=== PATIENT | female | born 1985 | race Caucasian/White ===

== ENCOUNTER → 2016-07-07 | Outpatient (CLI) | payer BC ==
[~2016-07-07] MED LIST: METH0.2T39 PO; PRENTAB26 PO
== END | disposition home or self-care (01) ==
LOC: C.PAPS 10:09
PROVIDERS: ATTEND Obstetrics & Gynecology
DX: Z01.419 Encounter for gynecological examination (general) (routine) without abnormal findings (principal); Z98.891 History of uterine scar from previous surgery

== ENCOUNTER → 2016-11-01 | Outpatient (CLI) | payer BC | END | disposition home or self-care (01) | LOC: C.LAB 09:17 | PROVIDERS: ATTEND Obstetrics & Gynecology | DX: Z32.01 Encounter for pregnancy test, result positive (principal) ==

== ENCOUNTER → 2016-11-03 | Outpatient (CLI) | payer BC | END | disposition home or self-care (01) | LOC: C.LAB 11:21 | PROVIDERS: ATTEND Obstetrics & Gynecology | DX: O20.0 Threatened abortion (principal) ==

== ENCOUNTER → 2016-11-14 | Outpatient (CLI) | payer BC ==
[2016-11-14 15:45] LABS: URINE APPEARANCE CLEAR (CLEAR); URINE BILIRUBIN NEG (NEG); URINE COLOR YELLOW; URINE EPITHELIAL CELL AUTO >30 /lpf (0-5); URINE NITRITE NEG (NEG); URINE SPECIFIC GRAVITY 1.011 (1.000-1.030); UROBILINOGEN NEG (NEG)
[2016-11-14 15:46] LABS: MANUAL MICROSCOPIC REQUIRED? NO; REVIEW REQ? NO
== END | disposition home or self-care (01) ==
LOC: C.LABSPEC 15:32
PROVIDERS: ATTEND Obstetrics & Gynecology
DX: O09.211 Supervision of pregnancy with history of pre-term labor, first trimester (principal); Z3A.00 Weeks of gestation of pregnancy not specified

== ENCOUNTER → 2016-11-26 | Outpatient (CLI) | payer BC ==
[2016-11-26 12:23] LABS: BASO % 0.6 %; BASO ABS # 0.05 K/uL (0-0.2); COMPLETE YES; EOS % 1.3 %; HEMATOCRIT 42.9 % (37-47); IG% 0.3 %; LYMPH % 28.9 %; LYMPH ABS # 2.23 K/uL (1.2-3.4); MEAN CELL VOLUME 88.5 fL (80-100); MEAN CORPUSCULAR HEMOGLOBIN 29.1 pg (25-34); MEAN CORPUSCULAR HGB CONC 32.9 g/dl (32-36); MEAN PLATELET VOLUME 9.8 fL (7.4-10.4); MONO % 6.2 %; NEUT % 62.7 %; PLATELET COUNT 255 K/uL (130-400); RED BLOOD COUNT 4.85 M/uL (4.2-5.4); WHITE BLOOD COUNT 7.72 K/uL (4.8-10.8)
== END | disposition home or self-care (01) ==
LOC: C.LAB1850 11:17
PROVIDERS: ATTEND Obstetrics & Gynecology
DX: O02.1 Missed abortion (principal)

== ENCOUNTER → 2016-11-27 | Day surgery (SDC) | payer BC ==
--- NOTE | 2016-11-26 11:44 | HISTORY & PHYSICAL EXAMINATION ---
DATE OF ADMISSION: 11/27/2016 ADMITTING DIAGNOSIS: Missed . ADMISSION HISTORY: The patient is a 31-year-old 4, para 1-1-0-2 at 7+ weeks' gestational age, who was admitted for suction D&E for a missed AB. The patient was seen in the office on 26 November for her new OB visit. At that time, an intrauterine was seen with a crown-rump length of 5+ weeks with no cardiac activity. The patient had had a previous ultrasound 2 weeks ago, which showed similar measurements with cardiac activity. Hence, the diagnosis of missed AB. Treatment options were discussed with the patient and she has been admitted for the above listed procedures. PAST MEDICAL HISTORY: OBSTETRICAL: Vaginal delivery x1 and section x1. GYNECOLOGICAL: None. MEDICAL: None. SURGICAL: , wisdom teeth extraction, and D&C. ALLERGIES: BENADRYL. SOCIAL HISTORY: No smoking. FAMILY HISTORY: Noncontributory. REVIEW OF SYSTEMS: As per HPI. ADMISSION PHYSICAL EXAMINATION: GENERAL: Shows a pleasant female in no acute distress. VITAL SIGNS: Blood pressure 122/62, height of 5 feet 7 inches, and weight of 122 pounds. HEENT EXAMINATION: Unremarkable. NECK: Supple. LUNGS: Clear. HEART: With a regular rhythm and rate. ABDOMEN: Soft and nontender with no palpable masses. PELVIC: Shows normal external genitalia. Vaginal vault is pink and rugated. There is dark blood in the posterior fornix. Cervix is closed. Bimanual examination shows an 8-week size anterior uterus. Adnexa show no palpable masses. RECTAL: Confirmatory. EXTREMITIES: Shows no deep calf tenderness. NEUROLOGIC: Grossly intact. IMPRESSION: A 31-year-old 4, para 1-1-0-2 at 7+ weeks' gestational age for suction D&E for missed . PLAN: The risks, benefits and alternatives to the surgery have been discussed. While the benefits will be removal of gestational tissue, and the alternatives are waiting for spontaneous miscarriage or medical induction, the risks include bleeding, infection, inadvertent perforation of the uterus or failure to remove all gestational tissue. The patient has had 2 first trimester losses in a row and genetic tissue from the procedure will be sent for evaluation. The permit has been signed and she wishes to proceed. WILLIE
[~2016-11-27] VITALS: Ht 170.2 cm; Wt 55.4 kg
[~2016-11-27] MED LIST changes: +ATROPINE SULFATE 0.1 MG/ML 5ML SYR IV PRN; +DEXAMETHASONE SOD INJ 4 MG/ML VIAL ONE; +DOXYCYCLINE HYCLATE 100 MG CAP PO SCH; +EpHEDrine SULFATE INJ 50 MG/ML AMP IV PRN; +FENTANYL CITRATE INJ 50 MCG/1 ML 2 ML VIAL IV PRN; +FENTANYL CITRATE INJ 50 MCG/1 ML 2 ML VIAL ONE; +HYDROCODONE/ACETAMOPHEN 5/325MG TAB PO PRN; +IBUPROFEN 600 MG TAB PO PRN; +KETOROLAC TROMETHAMINE 30 MG/ML VIAL IV. PRN; +KETOROLAC TROMETHAMINE 30 MG/ML VIAL ONE; +LACTATED RINGER'S 1000ML 1,000 ML IV SCH; +LIDOCAINE HCL 2% 2 ML VIAL (20MG/ML) ONE; +MEPERIDINE HCL 25 MG/ML CARP ONE; +MIDAZOLAM HCL 1 MG/ML 2ML VIAL ONE; +NURSING VERBAL MED ORDER ONE; +ONDANSETRON INJ 2 MG/ML 2 ML VIAL IV PRN; +ONDANSETRON INJ 2 MG/ML 2 ML VIAL ONE; +OXYTOCIN INJ 10 UNITS/ML VIAL ONE; +PROPOFOL IV EMULSION 10 MG/ML 20 ML VIAL IV ONE; +SODIUM CHLORIDE 0.9% 1000ML 1,000 ML IV SCH
[2016-11-27 09:18] VITALS: BP 114/72; PULSE 82; TEMP 36.8; O2SAT 100; Ht 170.2 cm; Wt 55.4 kg
--- NOTE | 2016-11-27 10:04 | History & Physical Bridge Note ---
H&P Re-Evaluation Bridge Note: I have examined the patient, reviewed the History & Physical and in the interval since the performance of the History & Physical I have noted the following changes of clinical significance: No changes noted
--- NOTE | 2016-11-27 10:47 | [facility] Post Operative Brief Note ---
Immediate Operative Summary Operative Date Nov 27, 2016. Pre-Operative Diagnosis Missed Post-Operative Diagnosis Missed Procedure(s) Performed Dilation and evacuation with genetic testing Surgeon Lonny Jigger Operator Surgeon(s) none Estimated Blood Loss 200cc Findings EUA revealed an 8 week posterior uterus, POC removed and sent for genetic and pathological evaluation. Post procedure EUA revealed a small posterior firm uterus Specimens A:Products of conception Drains None Anesthesia General Complication(s) None Disposition Recovery Room / PACU
--- NOTE | 2016-11-27 10:51 | Discharge Instructions-SurgCtr ---
Discharge Instructions Date of Service Nov 27, 2016. Visit Reason for Visit: Missed Discharge Discharge Diagnosis / Problem: same Discharge Goals Goal(s): Therapeutic intervention Activity Recommendations Activity Limitations: as noted below Anesthesia . Post Anesthesia Instructions: If you have had General Anesthesia or IV Sedation: * Do not drive today. * Resume driving when surgeon permits. * Do not make important decisions or sign legal documents today. * Call surgeon for: 1. Temperature elevations greater than 101 degrees F. 2. Uncontrollable pain. 3. Excessive bleeding. 4. Persistent nausea and vomiting. 5. Medication intolerance (nausea, vomiting or rash). * For nausea and vomiting use only clear liquids such as: tea, soda, bouillon until nausea subsides, then gradually increase diet as tolerated. * If you have any concerns or questions, call your surgeon's office. If physician is unavailable and it is an emergency, call 911 or go to the nearest emergency room. . Instructions / Follow-Up Instructions / Follow-Up ACTIVITY RECOMMENDATIONS: * Avoid tampons, douching, hot tubs, pools, and intercourse until bleeding has stopped. * May shower as usual. * No strenuous activity for 24-48 hours. After 24-48 hours, you may do anything you feel like doing (driving and sports are okay). SPECIAL CARE INSTRUCTIONS: Special Diet: * Mild nausea may occur in the immediate post-operative period. * Take clear liquids such as tea, cola or bouillon until all nausea has subsided; you may then resume your normal diet. Special Care: * Light bleeding and vaginal spotting can last from a few days to 3-4 weeks. Call your doctor if bleeding becomes heavier than the heaviest part of your period. * Check your temperature twice a day for one week. If it goes above 100.4 degrees Fahrenheit (38.0 Celsius), notify your doctor. * Call your doctor's office for an appointment for 6 weeks after your surgery. FOLLOW-UP VISIT: Call your doctor's office for an appointment for 6 weeks after your surgery. Diet Recommendations Home Diet: resume previous diet Procedures Procedures Performed: Dilation and evacuation with genetic testing Pending Studies Studies pending at discharge: yes List of pending studies: 1) Pathology from procedure 2) Genetic testing Medical Emergencies . Who to Call and When: Medical Emergencies: If at any time you feel your situation is an emergency, please call 911 immediately. . Non-Emergent Contact Non-Emergency issues call your: Applied Statistician Call Non-Emergent contact if: you have a fever, temperature is above 100.5, your pain is not controlled . . "Provider Documentation" section prepared by Jose Mukherjee. .
--- NOTE | 2016-11-27 10:54 | Medical Student: [facility] ---
Immediate Operative Summary Operative Date Nov 27, 2016. Pre-Operative Diagnosis Dilation and evacuation for missed Post-Operative Diagnosis same Procedure(s) Performed dilation and evacuation obatined sample for genetic testing Surgeon Dr. Jose Mukherjee Shipping Clerk/Admin Surgeon(s) none Estimated Blood Loss 200cc Findings products of conception removed and sent for genetic and pathological testing Specimens products of conception sent for genetic testing Anesthesia general Complication(s) None Disposition Recovery Room / PACU
--- NOTE | 2016-11-27 11:25 | OPERATIVE REPORT ---
DATE OF OPERATION: 11/27/2016 PREOPERATIVE DIAGNOSIS: Missed . POSTOPERATIVE DIAGNOSIS: Same. PROCEDURE PERFORMED: Suction D&E. SURGEON: Dr. Mukherjee. ANESTHESIA: General. FINDINGS: Exam under anesthesia revealed an 8-week posterior uterus. Products of conception removed on 2 passes of the suction curette. Repeat examination showed a small firm posterior uterus. PROCEDURE IN DETAIL: The patient was taken to the operating room and after general anesthesia, was placed in dorsolithotomy position and draped and prepped in the usual fashion. Bladder was drained of any residual urine. Single tooth tenaculum was used to grasp the anterior lip of the cervix. The cervical os was dilated with Pugh dilators to a Pugh #27. A #8 curved suction curette was introduced into the uterine cavity and the products of conception were removed with 2 passes of the suction curette. Hard curet was then inserted into the uterine cavity and all 4 quadrants were curettaged. Repeat examination showed a small firm posterior uterus with no active bleeding. Tenaculum removed from the cervix. The patient was taken out of dorsal lithotomy to recovery room in satisfactory condition. I attest to the content of the Intraoperative Record and any orders documented therein. Any exception s are noted below.
[2016-11-27 11:47] VITALS: BP 98/56; PULSE 72; TEMP 36.6; O2SAT 100
--- NOTE | 2016-11-27 11:51 | Anesthesiology Progress Note ---
Anesthesia Post Op Note Date & Time Nov 27, 2016 at 11:51 Vital Signs Pain Intensity: 0 Vital Signs Past 12 Hours Date Time Temp Pulse Resp B/P (MAP) Pulse Ox O2 Delivery O2 Flow Rate FiO2 11/27/16 11:36 70 17 11/27/16 11:36 70 17 105/73 100 11/27/16 11:34 36.6 65 18 109/69 99 Room Air 11/27/16 11:31 67 19 11/27/16 11:31 66 19 109/69 99 11/27/16 11:26 70 23 107/69 100 11/27/16 11:26 69 23 11/27/16 11:22 108/67 11/27/16 11:21 76 20 11/27/16 11:21 77 20 100 11/27/16 11:16 68 16 111/67 100 11/27/16 11:16 68 16 11/27/16 11:11 73 16 11/27/16 11:11 78 16 104/60 100 11/27/16 11:06 74 20 11/27/16 11:06 74 20 100 11/27/16 11:01 75 14 108/73 100 11/27/16 11:01 75 14 11/27/16 10:56 63 15 11/27/16 10:56 63 15 105/64 100 11/27/16 10:52 101/69 11/27/16 10:51 36.1 82 16 101/69 100 Mask 10 11/27/16 09:18 36.8 82 18 114/72 (86) 100 Room Air Notes Mental Status: alert / awake / arousable, participated in evaluation Pt Amnestic to Procedure: Yes Nausea / Vomiting: adequately controlled Pain: adequately controlled Airway Patency, RR, SpO2: stable & adequate BP & HR: stable & adequate Hydration State: stable & adequate Anesthetic Complications: no major complications apparent
[2016-11-27 12:20] VITALS: BP 101/56; PULSE 68; O2SAT 100
[2016-11-27 12:45] VITALS: BP 112/62; PULSE 75; TEMP 36.4; O2SAT 95
== END | disposition home or self-care (01) ==
LOC: C.ACU 08:59
PROVIDERS: ATTEND Obstetrics & Gynecology
DX: O02.1 Missed abortion (principal)

== ENCOUNTER → 2017-05-13 | Outpatient (CLI) | payer BC ==
[~2017-05-13] MED LIST changes: -ATROPINE SULFATE 0.1 MG/ML 5ML SYR IV PRN; -DEXAMETHASONE SOD INJ 4 MG/ML VIAL ONE; -DOXYCYCLINE HYCLATE 100 MG CAP PO SCH; -EpHEDrine SULFATE INJ 50 MG/ML AMP IV PRN; -FENTANYL CITRATE INJ 50 MCG/1 ML 2 ML VIAL IV PRN; -FENTANYL CITRATE INJ 50 MCG/1 ML 2 ML VIAL ONE; -HYDROCODONE/ACETAMOPHEN 5/325MG TAB PO PRN; -IBUPROFEN 600 MG TAB PO PRN; -KETOROLAC TROMETHAMINE 30 MG/ML VIAL IV. PRN; -KETOROLAC TROMETHAMINE 30 MG/ML VIAL ONE; -LACTATED RINGER'S 1000ML 1,000 ML IV SCH; -LIDOCAINE HCL 2% 2 ML VIAL (20MG/ML) ONE; -MEPERIDINE HCL 25 MG/ML CARP ONE; -METH0.2T39 PO; -MIDAZOLAM HCL 1 MG/ML 2ML VIAL ONE; -NURSING VERBAL MED ORDER ONE; -ONDANSETRON INJ 2 MG/ML 2 ML VIAL IV PRN; -ONDANSETRON INJ 2 MG/ML 2 ML VIAL ONE; -OXYTOCIN INJ 10 UNITS/ML VIAL ONE; -PROPOFOL IV EMULSION 10 MG/ML 20 ML VIAL IV ONE; -SODIUM CHLORIDE 0.9% 1000ML 1,000 ML IV SCH
== END | disposition home or self-care (01) ==
LOC: C.PATHSPEC 11:12
PROVIDERS: ATTEND Obstetrics & Gynecology
DX: N93.8 Other specified abnormal uterine and vaginal bleeding (principal)

== ENCOUNTER → 2017-12-07 | Outpatient (CLI) | payer BC ==
[2017-12-07 14:05] LABS: BASO % 0.4 %; BASO ABS # 0.03 K/uL (0-0.2); EOS % 1.3 %; EOS ABS # 0.09 K/uL (0-0.5); HEMATOCRIT 41.2 % (37-47); HEMOGLOBIN 13.9 g/dL (12.0-16.0); IG# 0.01 K/uL (0.00-0.02); LYMPH % 24.9 %; LYMPH ABS # 1.77 K/uL (1.2-3.4); MEAN CELL VOLUME 85.8 fL (80-100); MEAN CORPUSCULAR HGB CONC 33.7 g/dl (32-36); MEAN PLATELET VOLUME 10.4 fL (7.4-10.4); MONO ABS # 0.43 K/uL (0.11-0.59); NEUT % 67.3 %; NEUT ABS # 4.78 K/uL (1.4-6.5); PLATELET COUNT 268 K/uL (130-400); RED CELL DISTRIBUTION WIDTH CV 13.7 % (11.5-14.5); RED CELL DISTRIBUTION WIDTH SD 43.2 fL (36.4-46.3); WHITE BLOOD COUNT 7.11 K/uL (4.8-10.8)
== END | disposition home or self-care (01) ==
LOC: C.LAB1850 13:13
PROVIDERS: ATTEND Obstetrics & Gynecology
DX: O02.1 Missed abortion (principal)

== ENCOUNTER → 2017-12-18 | Outpatient (CLI) | payer BC | END | disposition home or self-care (01) | LOC: C.LAB1850 12:18 | PROVIDERS: ATTEND Obstetrics & Gynecology | DX: O03.9 Complete or unspecified spontaneous abortion without complication (principal) ==

== ENCOUNTER → 2017-12-25 | Outpatient (CLI) | payer BC | END | disposition home or self-care (01) | LOC: C.LAB1850 16:31 | PROVIDERS: ATTEND Obstetrics & Gynecology | DX: O03.9 Complete or unspecified spontaneous abortion without complication (principal) ==

== ENCOUNTER 2019-02-07 05:07 | Inpatient (IN) ==
--- NOTE | 2019-02-03 11:21 | PAT Medication Instructions ---
Medication Instructions Date of Service February 03, 2019 Home Medications docosahexanoic acid PO ferrous sulfate PO DO NOT take the morning of surgery docosahexanoic acid PO ferrous sulfate PO Other Notes If you have any questions please call us at [phone] or [phone] or [phone] or [phone]
--- NOTE | 2019-02-04 10:39 | Anesthesiology Consultation ---
Date of Service February 04, 2019 Assessment & Plan Chart Review Chart Review: Acceptable Risk for Surgery (pending labs (CBC, T&S done 02/04 [facility])) and Patient seen in Pre Admission Testing Teaching & Discussion Pre-Anesthesia Teaching/Discussion Notes: Instructed NPO after midnight before surgery,except medications with 15 cc of water. Medication instructions provided according to the PAT guidelines. History Surgery Operation Date: 02/07/19 07:30 Proposed Procedures p Section - Carol Roa MD s with Post Tubal Ligation L&D - Carol Roa MD Height/Weight Height: 5 ft 7 in Weight: 75.7 kg Allergies Allergy/AdvReac Type Severity Reaction Status Date / Time No Known Drug Allergies Allergy Verified 02/04/19 09:03 Medications Home Medications Medication Instructions Recorded Confirmed Last Taken ferrous sulfate 1 tab PO HS 12/08/18 02/04/19 Unknown PNV cmb#95-ferrous fumarate-FA 1 tab PO QPM 02/03/19 02/04/19 Unknown [] [id number]-[id number]-[id number] 1 tab PO Q6H PRN 02/03/19 02/04/19 Unknown [Excedrin Migraine] Past Medical History Medical History History of varicella Migraine HX Past Family History Family History Mother Hypothyroidism Systemic lupus erythematosus Father Non Hodgkin's lymphoma Past Surgical History Surgical History S/P section 2014 22 breech S/P dilation and curettage X2 S/P wisdom tooth extraction Past Anesthesia History No Family Hx of Anesthesia Complications and Other c/s (2/2 breech): 06/06/14: SAB x 1 at L3-L4 at [facility]-- per patient, did have some dyspnea after SAB placement, also had post-operative "shaking." No issues with other surgeries/anesthesia including: D&E: 06/07/15: LMA#4 at [facility] History of PONV No Hx of PONV and No Hx of Motion Sickness Social History Smoking Status: Never smoker Do You Dip or Chew Tobacco: No Hx Alcohol Use: No Hx Substance Use: No Review of Systems URI/sore throat symptoms- OB aware per patient. Patient denies chest pain, shortness of breath, dyspnea on exertion, reflux, wheezing, palpitations. Physical Exam Vital Signs VITALS BP 119/79 P 69 TEMP 98.0 SP02 97.0 RESP 16 PHYSICAL Full neck and c-spine range of motion. Full TMJ range of motion. TMD 3 finger breaths Mallampati Score 2 Dentition: intact Lungs: clear throughout to auscultation Cardiac: regular rate and rhythm, no murmurs noted Spine: normal Carotid arteries: negative bruit Extremities: no edema
[2019-02-04 12:25] LABS: Basophils # (auto) 0.03 K/uL (0-0.2); Basophils % (auto) 0.3 %; Eosinophils # (auto) 0.16 K/uL (0-0.5); Eosinophils % (auto) 1.5 %; Hematocrit (blood only) 37.1 % (37-47); Hemoglobin 12.6 g/dL (12.0-16.0); Immature Granulocytes # (auto) 0.12 K/uL (0.00-0.02); Immature Granulocytes % (auto) 1.2 %; Lymphocytes # (auto) 2.02 K/uL (1.2-3.4); Lymphocytes % (auto) 19.4 %; Mean Corpuscular Hemoglobin 30.3 pg (25-34); Mean Corpuscular Volume 89.2 fL (80-100); Mean Platelet Volume 10.3 fL (7.4-10.4); Monocytes # (auto) 0.77 K/uL (0.11-0.59); Monocytes % (auto) 7.4 %; Neutrophils # (auto) 7.29 K/uL (1.4-6.5); Neutrophils % (auto) 70.2 %; Platelet Count 210 K/uL (130-400); RDW Coefficient of Variation 15.2 % (11.5-14.5); RDW Standard Deviation 49.4 fL (36.4-46.3); Red Blood Count 4.16 M/uL (4.2-5.4); White Blood Count 10.39 K/uL (4.8-10.8)
[2019-02-07] MEDS ORDERED: LACTATED RINGER'S 1,000 ML IV SCH ×2 (05:15→17:02)
[2019-02-07 05:44] LABS: Basophils # (auto) 0.02 K/uL (0-0.2); Basophils % (auto) 0.2 %; Eosinophils # (auto) 0.24 K/uL (0-0.5); Eosinophils % (auto) 2.4 %; Hemoglobin 12.4 g/dL (12.0-16.0); Immature Granulocytes # (auto) 0.12 K/uL (0.00-0.02); Immature Granulocytes % (auto) 1.2 %; Lymphocytes # (auto) 2.09 K/uL (1.2-3.4); Lymphocytes % (auto) 21.1 %; Mean Corpuscular Hemoglobin 29.7 pg (25-34); Mean Corpuscular Volume 88.5 fL (80-100); Mean Platelet Volume 10.3 fL (7.4-10.4); Monocytes # (auto) 0.74 K/uL (0.11-0.59); Monocytes % (auto) 7.5 %; Neutrophils % (auto) 67.6 %; Platelet Count 180 K/uL (130-400); RDW Coefficient of Variation 15.3 % (11.5-14.5); RDW Standard Deviation 48.8 fL (36.4-46.3); Red Blood Count 4.18 M/uL (4.2-5.4); White Blood Count 9.91 K/uL (4.8-10.8)
[2019-02-07 05:48] LABS: Mean Corpuscular Hgb Conc 33.5 g/dL (32-36)
[2019-02-07] MEDS ORDERED: CEFAZOLIN 2000MG 2,000 MG/15 ML SYR IV SCH (06:00)
[2019-02-07] MEDS ORDERED: LR 15ML/HR IV SCH (06:00)
[2019-02-07] MEDS ORDERED: CITRIC ACID/SODIUM CITRATE 15 ML UDC PO SCH (06:00)
[2019-02-07] MEDS: LACTATED RINGER'S 1,000 ML IV SCH ×2 (06:47→18:49)
--- NOTE | 2019-02-07 07:13 | History & Physical Bridge Note ---
Date of Service February 07, 2019 History & Physical Bridge Note I have examined the patient, reviewed the History & Physical and in the interval since the performance of the History & Physical I have noted the following changes of clinical significance: no changes noted
[2019-02-07] MEDS ORDERED: MoRPHine SULFATE PF 1 MG/ML 10 ML AMP/VIAL ONE (07:33)
[2019-02-07] MEDS ORDERED: fentaNYL citrate 100 MCG/2 ML VIAL ONE (07:33)
[2019-02-07] MEDS ORDERED: OXYTOCIN 10 UNITS/ML VIAL ONE ×3 (07:35→08:00)
[2019-02-07] MEDS ORDERED: PHENYLEPHRINE 100MCG/ML 5ML SYR ONE (07:48)
[2019-02-07] MEDS ORDERED: LACTATED RINGER'S 500 ML IV PRN (07:49)
[2019-02-07] MEDS ORDERED: DiphenhydrAMINE HCL 50 MG/ML VIAL IV PRN (07:49)
[2019-02-07] MEDS ORDERED: HYDROmorphone INJ 0.5 MG/0.5 ML SYR IV PRN (07:49)
[2019-02-07] MEDS ORDERED: MEPERIDINE HCL 25 MG/ML CARP IV PRN (07:49)
[2019-02-07] MEDS ORDERED: PROMETHAZINE HCL 25 MG in SODIUM CHLORIDE 0.9% 50 ML IV PRN (07:49)
[2019-02-07] MEDS ORDERED: MoRPHine SULFATE PF 1 MG/ML 10 ML AMP/VIAL INT SPINAL ONE (07:49)
[2019-02-07] MEDS ORDERED: NALOXONE HCL 1 MG in SODIUM CHLORIDE 0.9% 1000ML 1,000 ML IV PRN (07:49)
[2019-02-07] MEDS ORDERED: ONDANSETRON INJ 2 MG/ML 2 ML VIAL IV PRN (07:49)
[2019-02-07] MEDS ORDERED: NALOXONE HCL 0.4 MG/1 ML VIAL/CARP IV PRN (07:49)
[2019-02-07] MEDS ORDERED: NALOXONE HCL 0.08 MG in SYRINGE 1.8 ML IV PRN (07:49)
[2019-02-07] MEDS ORDERED: ePHEDrine sulfate 50 MG/ML AMP IV PRN (07:49)
[2019-02-07] MEDS ORDERED: NO NARCOTICS OR SEDATIVES SCH (08:00)
[2019-02-07] MEDS ORDERED: SODIUM CHLORIDE 0.9% 1000ML 1,000 ML IV SCH (08:00)
[2019-02-07] MEDS ORDERED: ONDANSETRON INJ 2 MG/ML 2 ML VIAL ONE (08:15)
--- NOTE | 2019-02-07 08:32 | Operative Report ---
[facility] Post Operative Report Pre & Post Diagnosis Operation Date: 02/07/19 07:30 Pre-Op Diagnosis: SIUP at term Prior section Desires permanent sterilization Procedure Operation Date: 02/07/19 07:30 <No data on this case meets the specified criteria> Repeat low transverse section, Bilateral tubal ligation. Surgeon Carol Roa MD Car Ferry Captain DO Antonia Estimated Blood Loss 600 Findings Consistent with Post-Op Diagnosis Specimens Placenta Cord blood Portions of R and L tube Anesthesia Type Spinal Complications none Disposition Accompanied Patient To Recovery: Yes Disposition: L&D Description of Procedure The patient was brought to the operating room and placed on the table in the supine position with a leftward tilt, then prepped and draped in standard sterile fashion. A hard time out was taken prior to proceeding. A pfannensteil incision was created sharply and carried down to the fascia using bovie electrocautery. The fascia was nicked and then extended using eason scissors. The edges of the fascia were grasped with Linda clamps and elevated, then sharply and bluntly dissected off the underlying rectus. The midline of the rectus was identified and bluntly . The peritoneum was bluntly entered, and this entry was extended using pressure from the surgeon's hands. The bladder retractor was placed and the lower uterine segment was examined and found to be well developed. A bladder flap was created and the retractor was replaced behind this flap to protect the bladder. A transverse lower uterine incision was then created, with final entry to the uterine cavity made in a blunt manner with the surgeon's finger. Clear amniotic fluid was encountered. The head was elevated to the incision and delivered using mild fundal pressure. The cord was doubly clamped and cut, then the vigorous infant was taken to the warmer for fire adjuster care. The placenta was manually extracted, then the uterus was gently exteriorized from the maternal abdomen. The cavity was cleared of clot and debris using a dry lap sponge. The angles of the incision were identified with allis clamps, and the hysterotomy was then repaired in running locked fashion using 0-vicryl suture, followed by a second imbricating layer. The tubes and ovaries were examined and found to be normal bilaterally. After verbal consent was completed one final time, the tubal ligation was done via [place] method. Chromic suture was used, and the excised portion of each tube was sent to pathology. The posterior gutter was irrigated and cleared of clot and debris. The uterus was then gently re-internalized to the abdomen. Lateral gutters were cleared of clot and debris using a damp lap sponge, and a final exam of the hysterotomy revealed good hemostasis. The rectus muscles were allowed to reapproximate naturally. The angle of the fascia was grasped with a Linda clamp and the fascia was then repaired in running non- locked fashion with 1-vicryl suture. At the completion of repair, the fascia was examined and found to be free of any defect. The subcutaneous tissue was copiously irrigated and then reapproximated using 3-0 chromic. The skin was then closed using 4-0 monocryl in a running subcuticular fashion and a dermabond dressing was applied. The lundberg was noted to be draining clear yellow urine as the patient was transferred back to her recovery room. I attest to the content of the Intraoperative Record and any orders documented therein. Any exceptions are noted below.
[2019-02-07] MEDS ORDERED: DIPHTHERIA/TETANUS/PERTUSSIS 0.5 ML SYR/VIAL IM ONE (08:35)
[2019-02-07] MEDS ORDERED: HYDROCORTISONE ACETATE 25 MG SUPP PR PRN (08:35)
[2019-02-07] MEDS ORDERED: SUPERCREAM 0.870% 15 GM JAR EXT PRN (08:35)
[2019-02-07] MEDS ORDERED: SENNA 8.6 MG TAB PO PRN (08:35)
[2019-02-07] MEDS ORDERED: MAGNESIUM HYDROXIDE SUSP 30 ML UDC PO PRN (08:35)
[2019-02-07] MEDS ORDERED: BENZOCAINE 20% AER SPR 82.5 GM CAN EXT PRN (08:35)
[2019-02-07] MEDS ORDERED: OXYTOCIN 30 UNITS in LACTATED RINGER'S 1,000 ML IV SCH (09:00)
[2019-02-07] MEDS: NALBUPHINE HCL INJ 10 MG/ML AMP IV PRN ×2 (09:54→17:10)
[2019-02-07] MEDS: KETOROLAC 30 MG/ML VIAL IV PRN ×2 (10:36→18:49)
--- NOTE | 2019-02-07 11:16 | Anesthesiology Progress Note ---
Date of Service February 07, 2019 Anesthesia Post Procedure Vital Signs Vital Signs: Temp Pulse Resp BP Pulse Ox 02/07/19 11:12 79 99 02/07/19 11:07 66 125/76 99 02/07/19 11:02 68 99 02/07/19 10:57 68 132/75 99 02/07/19 10:52 74 100 02/07/19 10:47 66 131/73 100 02/07/19 10:42 74 100 02/07/19 10:40 36.5 C 20 02/07/19 10:37 63 133/77 100 02/07/19 10:32 73 100 02/07/19 10:27 73 135/77 100 02/07/19 10:22 71 100 02/07/19 10:17 67 131/85 100 02/07/19 10:12 71 100 02/07/19 10:07 74 125/82 100 02/07/19 10:02 67 99 02/07/19 09:57 65 127/74 99 02/07/19 09:52 70 99 02/07/19 09:47 68 125/85 98 02/07/19 09:42 69 98 02/07/19 09:40 16 02/07/19 09:37 76 98 02/07/19 09:32 66 97 02/07/19 09:30 20 02/07/19 09:27 69 130/69 97 02/07/19 09:22 69 97 02/07/19 09:20 20 02/07/19 09:17 76 123/67 99 02/07/19 09:12 69 97 02/07/19 09:10 64 20 126/71 97 02/07/19 09:07 73 97 02/07/19 09:02 78 97 02/07/19 09:00 18 97 02/07/19 08:58 139 H 131/58 L 02/07/19 08:57 74 96 02/07/19 08:52 70 97 02/07/19 08:50 74 18 121/69 02/07/19 08:47 68 97 02/07/19 08:42 70 97 02/07/19 08:40 36.5 C 18 95 02/07/19 08:37 69 121/75 96 02/07/19 07:29 70 97 02/07/19 06:59 36.4 C L 68 20 110/63 02/07/19 05:22 36.5 C 02/07/19 05:15 81 122/78 Pain Intensity Bilateral Lower Abdomen: Pain Intensity: 3 Transfer of Care Handoff Completed per policy Notes Mental Status: alert / awake / arousable Patient Amnestic to Procedure: Yes Nausea / Vomiting: adequately controlled Pain: adequately controlled Airway Patency, RR, SpO2: stable & adequate BP & HR: stable & adequate Hydration State: stable & adequate Neuraxial Anesthesia: was administered and sensory block is resolving Anesthetic Complications: no major complications apparent and Pt Satisfied with anesthetic care
[2019-02-07] MEDS: SIMETHICONE 80 MG CHEW PO SCH ×3 (17:06→21:27)
[2019-02-07] MEDS: DOCUSATE SODIUM 100 MG CAP PO SCH (21:27)
[2019-02-08] MEDS ORDERED: DC INTRASPINAL MORPHINE ONE (01:49)
[2019-02-08] MEDS ORDERED: MEPERIDINE HCL 50 MG/ML CARP IV PRN (01:50)
[2019-02-08] MEDS ORDERED: PROMETHAZINE HCL 25 MG in SODIUM CHLORIDE 0.9% 50 ML IV PRN (01:50)
[2019-02-08] MEDS ORDERED: ONDANSETRON INJ 2 MG/ML 2 ML VIAL IV PRN (01:50)
[2019-02-08] MEDS ORDERED: KETOROLAC 30 MG/ML VIAL IV PRN (01:50)
[2019-02-08] MEDS ORDERED: DiphenhydrAMINE HCL 50 MG/ML VIAL IV PRN (01:50)
--- NOTE | 2019-02-08 05:55 | Obstetrical Progress Note ---
Date of Service February 08, 2019 Assessment & Plan (1) : 33 yo s/p repeat C/S @ 40.6 weeks -POD# 1 - GBS +, Blood Type O+ - Feels well today. Eating well, voiding well, ambulating well. - Pain well controlled. - Routine postoperative care - After discharge will have [address] Roa. Supervising Physician Co-Signing Physician Notes I have reviewed the resident's note and examined the patient myself, and agree with the note above. Subjective Doing well this morning with no specific concerns or questions. She just had the lundberg out and plans on going to the bathroom to urinate this morning. Review of Systems Review of Systems: Denies fever, chills, sweats Denies shortness of breath, difficulty breathing, chest pain, palpitations, chest pressure. Denies breast pain. Denies dysuria (no urine yet, lundberg just removed) Denies headache. Physical Exam Physical Exam: General: Alert, oriented. No acute distress. Cardiac: Regular rate and rhythm, no murmurs/rubs/gallops. Respiratory: Clear to auscultation anterior and posteriorly, no wheezes/rales/rhonchi. No increased work of breathing. Symmetrical chest rise. No respiratory distress. Abdomen: Soft, nontender, nondistended. Bowel sounds present. Uterus: Uterine fundus firm, palpable at the umbilicus. Lower Extremities: No lower extremity edema or swelling. No deep calf pain. Mayela's negative bilaterally. surgical incision intact, clean, dry. No warmth, erythema, discharge, or dehiscence. Results & Data Vital Signs (Past 12 Hours) Vital Signs Temp Pulse Resp BP Pulse Ox 02/08/19 03:30 36.5 C 77 20 115/72 97 02/08/19 02:18 18 96 02/08/19 01:20 18 97 02/08/19 00:27 20 96 02/07/19 23:25 37.0 C 71 20 116/73 94 02/07/19 22:19 16 98 02/07/19 21:00 16 97 02/07/19 20:00 36.6 C 80 16 123/78 98 02/07/19 19:00 18 98 02/07/19 18:00 18 96 PG Care Time/CCT Total # of Minutes Spent Total Time Spent with Patient: Total time spent is greater than 50% in coordination of care (as documented) at patient's floor/unit and/or counseling patient: Resident Activity Tracking Resident Involvement: Resident Care Provided Care Provided: Adult [facility]
[2019-02-08 06:53] LABS: Basophils # (auto) 0.02 K/uL (0-0.2); Basophils % (auto) 0.2 %; Eosinophils # (auto) 0.25 K/uL (0-0.5); Eosinophils % (auto) 2.2 %; Hematocrit (blood only) 32.1 % (37-47); Hemoglobin 10.9 g/dL (12.0-16.0); Immature Granulocytes # (auto) 0.06 K/uL (0.00-0.02); Immature Granulocytes % (auto) 0.5 %; Lymphocytes # (auto) 1.69 K/uL (1.2-3.4); Lymphocytes % (auto) 14.7 %; Mean Corpuscular Hemoglobin 30.4 pg (25-34); Mean Corpuscular Volume 89.7 fL (80-100); Mean Platelet Volume 10.2 fL (7.4-10.4); Monocytes # (auto) 0.64 K/uL (0.11-0.59); Monocytes % (auto) 5.6 %; Neutrophils # (auto) 8.86 K/uL (1.4-6.5); Neutrophils % (auto) 76.8 %; Platelet Count 150 K/uL (130-400); RDW Coefficient of Variation 15.3 % (11.5-14.5); RDW Standard Deviation 49.6 fL (36.4-46.3); Red Blood Count 3.58 M/uL (4.2-5.4); White Blood Count 11.52 K/uL (4.8-10.8)
[2019-02-08] MEDS: DOCUSATE SODIUM 100 MG CAP PO SCH ×2 (07:55→20:22)
[2019-02-08] MEDS: SIMETHICONE 80 MG CHEW PO SCH ×4 (07:55→20:22)
[2019-02-08] MEDS: FERROUS SULFATE 325 MG TAB PO SCH (07:55)
[2019-02-08] MEDS: PRENATAL VITAMIN 1 TAB PO SCH (07:55)
[2019-02-08] MEDS: IBUPROFEN 600 MG TAB PO PRN ×3 (09:31→20:22)
[2019-02-08] MEDS: OXYCODONE/ACETAMINOPHEN 5mg/325mg TAB PO PRN ×2 (15:33→20:22)
[2019-02-09] MEDS: IBUPROFEN 600 MG TAB PO PRN ×3 (00:28→08:38)
[2019-02-09] MEDS: OXYCODONE/ACETAMINOPHEN 5mg/325mg TAB PO PRN ×3 (00:28→08:37)
--- NOTE | 2019-02-09 05:22 | Obstetrical Progress Note ---
Date of Service February 09, 2019 Assessment & Plan (1) : 33 yo s/p repeat C/S @ 40.6 weeks and tubal ligation -POD# 2 - GBS +, Blood Type O+ - Feels well today. Eating well, voiding well, ambulating well. - Pain well controlled. - Routine postoperative care. - After discharge will have [address] Roa. Supervising Physician Co-Signing Physician Notes Patient seen and evaluated and agree with the above findings and plan. Doing well and stable for discharge. Subjective Doing well this morning, wondering if she will be able to go home today. Her C/S was after noon 2 days prior. Pain was 2/10 after medication and 4-5/10 prior to taking pain medication. Review of Systems Review of Systems: Denies fever, chills, sweats Denies shortness of breath, difficulty breathing, chest pain, palpitations, chest pressure. Denies breast pain. Denies dysuria Denies headache. Physical Exam Physical Exam: General: Alert, oriented. No acute distress. Cardiac: Regular rate and rhythm, no murmurs/rubs/gallops. Respiratory: Clear to auscultation anterior and posteriorly, no wheezes/rales/rhonchi. No increased work of breathing. Symmetrical chest rise. No respiratory distress. Abdomen: Soft, nontender, nondistended. Bowel sounds present. Uterus: Uterine fundus firm, palpable at the umbilicus. Lower Extremities: No lower extremity edema or swelling. No deep calf pain. Mayela's negative bilaterally. surgical incision intact, clean, dry. No warmth, erythema, discharge, or dehiscence. Results & Data Vital Signs (Past 12 Hours) Vital Signs Temp Pulse Resp BP Pulse Ox 02/08/19 23:40 36.8 C 75 20 113/73 96 02/08/19 20:10 36.3 C L 86 18 126/79 PG Care Time/CCT Total # of Minutes Spent Total Time Spent with Patient: Total time spent is greater than 50% in coordination of care (as documented) at patient's floor/unit and/or counseling patient: Resident Activity Tracking Resident Involvement: Resident Care Provided Care Provided: Adult [facility] Medicine
[2019-02-09 06:33] LABS: Hematocrit (blood only) 32.5 % (37-47); Hemoglobin 10.8 g/dL (12.0-16.0)
[2019-02-09] MEDS: SIMETHICONE 80 MG CHEW PO SCH (08:37)
[2019-02-09] MEDS: FERROUS SULFATE 325 MG TAB PO SCH (08:37)
[2019-02-09] MEDS: DOCUSATE SODIUM 100 MG CAP PO SCH (08:37)
[2019-02-09] MEDS: PRENATAL VITAMIN 1 TAB PO SCH (08:37)
--- NOTE | 2019-02-10 08:14 | Discharge Summary ---
Date of Service February 10, 2019 Admission HPI Per Admitting Provider Planned RCS and Tubal at term. Discharge Data Consultations 02/07/19 05:15 Consult Anesthesiology Stat Procedures Performed Operation Date: 02/07/19 07:30 Actual Procedures p Section in LD OR for live female at 0757 - Carol Roa MD Hospital Course (1) : Patient underwent routine repeat with bilateral annmarie tubal pro cedure. She was discharged home in good condition after an uneventful recovery, with plan to f/u in 6 weeks as usual.
== END 2019-02-09 11:10 | disposition home or self-care (01) | DRG 785 ==
LOC: 4S1 05:07 → EDSTATUS 07:30 → 4S2 11:30